=== PATIENT | male | born 1960 | race Caucasian/White ===

== ENCOUNTER 2022-10-21 05:15 | Day surgery (SDC) | payer BC ==
[2022-10-19 11:59] VITALS: BMI 24.4
[2022-10-21] MEDS ORDERED: PROPOFOL 20 ML ONE (14:00)
[2022-10-21] MEDS ORDERED: ceFAZolin SODIUM 1 GM VIAL ONE (14:00)
[2022-10-21] MEDS ORDERED: MIDAZOLAM HCL 2 MG/2 ML SINGLE DOSE VIAL ONE (14:01)
[2022-10-21] MEDS ORDERED: BUPIVACAINE HCL/PF 0.5% (5MG/ML) 10 ML VIAL ONE (14:06)
[2022-10-21] MEDS ORDERED: LIDOCAINE HCL 1%, 10 MG/ML (10ML VIAL) MDV ONE (14:06)
[2022-10-21] MEDS ORDERED: ONDANSETRON 4 MG/2 ML VIAL ONE (14:36)
[2022-10-21] MEDS ORDERED: KETOROLAC TROMETHAMINE 30 MG/1 ML VIAL ONE (14:36)
[2022-10-21] MEDS ORDERED: LIDOCAINE 1% P/F 10 MG/ML VIAL INF ONE (14:45)
[2022-10-21] MEDS ORDERED: ceFAZolin 2 GRAM PREMIX BAG IVPB ONE (14:45)
[2022-10-21] MEDS ORDERED: BUPIVACAINE HCL/PF 0.5% (5MG/ML) 10 ML VIAL IJ ONE (14:45)
[2022-10-21 15:34] VITALS: RESP 18
[2022-10-21 16:04] VITALS: BP 100/66; PULSE 65; TEMP 98
== END 2022-10-21 16:15 | disposition home or self-care (01) ==
LOC: JASU-SURG 05:15
PROVIDERS: ATTEND Orthopaedic Surgery
PROC: 0LN70ZZ Release Right Hand Tendon, Open Approach (ICD-10-PCS; principal; 2022-10-21 13:30)
PROC: 0RN Upper Joints, Release (ICD-10-PCS; 2022-10-21 13:30)
DX: M65.321 Trigger finger, right index finger (principal); M25.641 Stiffness of right hand, not elsewhere classified
CPT/HCPCS: 88304-TC

== ENCOUNTER 2023-02-25 10:21 | Emergency (ER) | payer BC ==
[2023-02-25] MEDS ORDERED: ALBUTEROL SO4 2.5/IPRATROPIUM 0.5 INH SOL 3 ML VIAL.NEB. NEB ONE ×2 (10:41→10:55)
[2023-02-25 10:42] VITALS: BP 141/100; PULSE 86; RESP 16; TEMP 99; BMI 24.4
[2023-02-25] MEDS ORDERED: ACETAMINOPHEN 500 MG TABLET (FP) PO ONE (10:42)
[2023-02-25] MEDS ORDERED: ACETAMINOPHEN 500 MG TABLET (FP) ONE (10:55)
[2023-02-25 11:17] LABS: HEMATOCRIT 39.9 % (35.4-49); HEMOGLOBIN 12.4 G/dL (11.7-16.9); MCH 21.4 pg (25.7-33.7); MCHC 31.1 g/dl (32.0-35.9); MEAN PLT VOLUME 7.9 fl (7.5-11.1); PLATELET COUNT 291.5 10^3/uL (134-434); RBC 5.78 10^6/uL (4.00-5.60); RDW 18.1 % (11.9-15.9); WHITE BLOOD COUNT 8.4 10^3/uL (4.0-10.8)
[2023-02-25 11:22] LABS: ALBUMIN 4.3 g/dl (3.4-5.0); BILIRUBIN,TOTAL 0.9 mg/dl (0.2-1); CALCIUM 9.3 mg/dl (8.5-10.1); CREATININE 1.2 mg/dl (0.6-1.3); POTASSIUM 4.3 mmol/L (3.5-5.1); TOT PROT 7.2 g/dl (6.4-8.2)
[2023-02-25 11:38] LABS: PLATELET ESTIMATE ADEQUATE
[2023-02-25 11:40] LABS: ANISOCYTOSIS 1+
== END 2023-02-25 12:30 | disposition home or self-care (01) ==
LOC: FER 10:21
PROC: 3E0F7GC Introduction of Other Therapeutic Substance into Respiratory Tract, Via Natural or Artificial Opening (ICD-10-PCS; principal; 2023-02-25)
DX: R05.9 Cough, unspecified (principal); M79.10 Myalgia, unspecified site; R50.9 Fever, unspecified; J06.9 Acute upper respiratory infection, unspecified; R09.81 Nasal congestion; R06.2 Wheezing; Z20.822 Contact with and (suspected) exposure to COVID-19
CPT/HCPCS: 0241U-QW; 36415; 71046-TC-FY; 80053; 85025; 87651; 93005; 99285-25